=== PATIENT | female | born 1945 | race Caucasian/White ===

== ENCOUNTER 2017-02-28 22:04 | Inpatient (IN) | payer OTHER ==
[~2017-02-28] VITALS: Ht 165.1 cm; Wt 110.0 kg
[~2017-02-28 22:04] MED LIST: ACETAMINOPHEN-1 EAC1 PO; ACETAMINOPHEN650 M6 PO; ASPIRIN325 MG PO; BACTRIM,SEPT1 TABLET PO; COZAAR100 MG PO; DIOVAN320 MG PO; GLUCOTROL5 MG PO; IRON325 M1 PO; JANUVIA100 MG PO; JANUVIA25 M1 PO; Januvia PO; LEVOXYL112 MCG PO; Levaquin PO; Levothroid,Synthroid PO; OSTEO BI-FLEX1 EAC1 PO; ULTRAM50 MG PO; XALATAN 0.50 DROP/2. OP
[2017-03-01 05:51] VITALS: BP 145/67
[2017-03-01 05:56] LABS: POINT-OF-CARE METER ID UU14174212
[2017-03-01 09:57] LABS: POINT-OF-CARE METER ID UU13113675
[2017-03-01 11:22] VITALS: BP 111/52
[2017-03-01 11:54] LABS: POINT-OF-CARE METER ID UU13113712
[2017-03-01 13:35] VITALS: BP 116/53
[2017-03-01 15:41] VITALS: BP 119/56
[2017-03-01 16:10] LABS: POINT-OF-CARE METER ID UU13113712
[2017-03-01 20:08] VITALS: BP 107/54
[2017-03-01 21:35] LABS: POINT-OF-CARE METER ID UU13113712
[2017-03-02 00:21] VITALS: BP 103/50
[2017-03-02 04:00] VITALS: BP 98/55
[2017-03-02 05:22] LABS: HEMATOCRIT 35.5 % (36.0-46.0); MCV 86.4 FL (83-99)
[2017-03-02 05:48] LABS: ANION GAP 7 MEQ/L (2-14); CHLORIDE 103 MEQ/L (99-109); GFR ESTIMATE (CALCULATED) 36 mL/min/; GLUCOSE 160 mg/dL (70-99); POTASSIUM 4.5 MEQ/L (3.7-5.4); SAMPLE HEMOLYSIS CHECK 0; SAMPLE ICTERIC CHECK 0; SAMPLE LIPEMIA CHECK 0; SODIUM 136 MEQ/L (136-147); UREA NITROGEN (BUN) 20 mg/dL (9-23)
[2017-03-02 08:00] VITALS: BP 114/57
[2017-03-02 08:59] LABS: POINT-OF-CARE METER ID UU13113712
[2017-03-02] MEDS ORDERED: HYDROCODON-ACE1 EAC7 PO (09:03)
[2017-03-02] MEDS ORDERED: CELECOXIB200 MG PO (09:03)
[2017-03-02] MEDS ORDERED: ELIQUIS2.5 MG PO (09:03)
[2017-03-02 11:54] LABS: POINT-OF-CARE METER ID UU13113712
[2017-03-02 12:00] VITALS: BP 112/51
[2017-03-02 15:54] VITALS: BP 128/60
[2017-03-02 16:21] LABS: POINT-OF-CARE METER ID UU13113712
[2017-03-02 20:06] VITALS: BP 138/63
[2017-03-02 22:35] LABS: POINT-OF-CARE METER ID UU13113712
[2017-03-03 00:12] VITALS: BP 136/53
[2017-03-03 03:39] VITALS: BP 120/57
[2017-03-03 07:35] LABS: POINT-OF-CARE METER ID UU13113712
[2017-03-03 07:42] LABS: HEMATOCRIT 36.2 % (36.0-46.0)
[2017-03-03 08:11] VITALS: BP 126/72
[2017-03-03 11:51] LABS: POINT-OF-CARE METER ID UU13113712
[2017-03-03 12:12] VITALS: BP 135/59
== END 2017-03-03 15:02 | DRG 470 ==
LOC: ENRESERV 22:04 → 3WEST 03-01 05:24 → 2SOUTH 03-01 05:24 → 3WEST 03-01 11:01
PROVIDERS: Orthopaedic Surgery
PROC: 0SRD0J9 Replacement of Left Knee Joint with Synthetic Substitute, Cemented, Open Approach (ICD-10-PCS; principal; 2017-03-01)
DX: M17.12 Unilateral primary osteoarthritis, left knee (principal); I12.9 Hypertensive chronic kidney disease with stage 1 through stage 4 chronic kidney disease, or unspecified chronic kidney disease; E11.22 Type 2 diabetes mellitus with diabetic chronic kidney disease; N18.9 Chronic kidney disease, unspecified; E03.9 Hypothyroidism, unspecified; Z82.49 Family history of ischemic heart disease and other diseases of the circulatory system
CPT/HCPCS: 80048; 82948; 85014; 85018; C1713; J0131; J0690; J1100; J1815; J1885; J2250; J2405; J2795; J7030; J7050